=== PATIENT | male | born 1995 | race Caucasian/White ===

== ENCOUNTER 2018-01-19 13:55 | Emergency (ER) | payer OTHER, BC ==
[~2018-01-19 13:55] MED LIST: AMOX-559 PO; IBUP-1671 PO
--- NOTE | 2018-01-19 13:57 | ER Report ---
History and Physical Time Seen By MD: 13:56 Hx. 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 card no loc but headache has gotten progressively worse over the last 2 hours Allergies: Coded Allergies: No Known Drug Allergies (Unverified , 06/05/14) Home Meds Active Scripts Ibuprofen (IBUPROFEN) 600 Mg Tablet, 1 TAB PO Q6H, #30 TAB Prov:JHON LEVY 01/19/18 Discontinued Reported Medications Ibuprofen (MOTRIN IB) 200 Mg Tablet, 1-2 TAB PO Q6-8H 06/05/14 Past Medical/Surgical History negative Hx Smoking: Yes Smoking Status: Current: Some Days Smoker Exposure to Second Hand Smoke?: No Hx Substance Use Disorder: No Hx Alcohol Use: No Family History of: HTN Constitutional Vital Sign - Last 24 Hours 01/19/18 01/19/18 01/19/18 14:06 14:20 15:55 Temp 97.9 97.5 97.5 Pulse 84 88 Resp 18 20 B/P (MAP) 148/92 134/90 (105) Pulse Ox 95 96 O2 Delivery Room Air Room Air Physical Exam 22 year old alert anxious mild distress forehead red, tm non reddened , throat non reddened neck supple, hrr lungs cta, gagnon no other pain/injuries Medical Decision Making EKG/Imaging Imaging FACILITY: [facility] [place] PATIENT NAME: Derek Gurrola : 1995 MR: [id number] V: [id number] EXAM DATE: [id number] ORDERING PHYSICIAN: JHON LEVY TECHNOLOGIST: [place] [facility] [place]: Derek Gurrola : 1995 Visit/Account:[id number] Date of Sevice: 01/19/2018 EXAMINATION: CT HEAD WITHOUT CONTRAST COMPARISON: None available HISTORY: Head trauma. PROCEDURE: Noncontrast CT from the vertex through the skull base. One of the following dose optimization techniques was utilized in the performance of this exam: Automated exposure control; adjustment of the mA and/or kV according to the patient's size; or use of an iterative reconstruction technique. Specific details can be referenced in the facility's radiology CT exam operational policy. FINDINGS: Brain volume: Age-appropriate. Hemorrhage/extra-axial fluid: None. Mass effect/midline shift/edema: None. Ischemia: De La Garza-white differentiation is preserved. Ventricles and basal cisterns: Within normal limits. Posterior fossa: Negative. Vessels: Negative. Calvarium, skull base, and scalp: Negative. Visualized sinuses and orbits: Within normal limits. IMPRESSION: Negative age-appropriate noncontrast head CT. Report Dictated By: Vipin Moreno MD at 01/19/2018 2:41 PM Report E-Signed By: Vipin Moreno MD at 01/19/2018 2:46 PM WSN:[id number] ED Course/Re-evaluation ED Course Patient was given a Motrin in the emergency room pain was relieved after medication. CT head was negative we'll send him home with head injury precautions PRIMARY care physician as needed Re-evaluation Pain relieved after medication Decision to Disposition Date: Jan 19, 2018 Decision to Disposition Time: 15:32 Depart Departure Latest Vital Signs Vital Signs Date Time Temp Pulse Resp B/P (MAP) Pulse Ox O2 Delivery O2 Flow Rate FiO2 01/19/18 15:55 97.5 88 20 134/90 (105) 96 Room Air Impression: Primary Impression: Head injury Condition: Improved Disposition: HOME OR SELF-CARE New Scripts Ibuprofen (IBUPROFEN) 600 Mg Tablet 1 TAB PO Q6H, #30 TAB Prov: JHON LEVY 01/19/18 Patient Instructions: Head Injury (ED) Additional Instructions: Return for worsening of symptoms pulmonary rest today follow-up as needed JHON LEVY Jan 19, 2018 13:57
[2018-01-19] MEDS ORDERED: IBUPROFEN 800 MG TAB PO ONE ×2 (14:05→14:22)
--- NOTE | 2018-01-19 14:50 | RADIOLOGY IMAGING REPORT ---
FACILITY: [facility] PATIENT NAME: Derek Gurrola : 1995 MR: [id number] V: [id number] EXAM DATE: [id number] ORDERING PHYSICIAN: JHON LEVY TECHNOLOGIST: Location[place] [facility] [place] Patient: Derek Gurrola : 1995 Visit/Account:[id number] Date of Sevice: 01/19/2018 EXAMINATION: CT HEAD WITHOUT CONTRAST COMPARISON: None available HISTORY: Head trauma. PROCEDURE: Noncontrast CT from the vertex through the skull base. One of the following dose optimizat ion techniques was utilized in the performance of this exam: Automated exposure control; adjustment o f the mA and/or kV according to the patient's size; or use of an iterative reconstruction technique. Specific details can be referenced in the facility's radiology CT exam operational policy. FINDINGS: Brain volume: Age-appropriate. Hemorrhage/extra-axial fluid: None. Mass effect/midline shift/edema: None. Ischemia: De La Garza-white differentiation is preserved. Ventricles and basal cisterns: Within normal limits. Posterior fossa: Negative. Vessels: Negative. Calvarium, skull base, and scalp: Negative. Visualized sinuses and orbits: Within normal limits. IMPRESSION: Negative age-appropriate noncontrast head CT. Report Dictated By: Vipin Moreno MD at 01/19/2018 2:41 PM Report E-Signed By: Vipin Moreno MD at 01/19/2018 2:46 PM WSN:[id number]
[2018-01-19] MEDS ORDERED: IBUP600T22 PO (15:34)
[2018-01-19 15:55] VITALS: BP 134/90
== END 2018-01-19 15:58 | disposition home or self-care (01) ==
LOC: ER 13:57
DX: S09.8XXA Other specified injuries of head, initial encounter (principal); W22.01XA Walked into wall, initial encounter
CPT/HCPCS: 70450; 99282